=== PATIENT | female | born 1950 | race Caucasian/White ===

== ENCOUNTER → 2018-05-14 | Outpatient (CLI) | payer MEDICARE ==
--- NOTE | 2018-06-07 08:28 | Diagnostic Imaging Report ---
#[id number] - MGSCRBIL #BILATERAL DIGITAL SCREENING MAMMOGRAM WITH CAD: 05/14/2018 CLINICAL: Routine screening. No prior exams were available for comparison (patient does not remember where or when old studies were performed). Current study contains 4 films. There are scattered fibroglandular elements in both breasts. Current study was also evaluated with a Computer Aided Detection (CAD) system. There are multiple benign appearing nodules in both breasts; left more than right. There is a mole marker on the left side with scattered calcifications in both breasts. No significant masses, calcifications, or other findings are seen in either breast. IMPRESSION: PROBABLY BENIGN A follow-up mammogram in 6 months is recommended to demonstrate stability associated with the multiple small nodules in both breasts since there is nothing to compare with. The patient has been or will be notified of the results. Erick Rehman Jr., D.O. cw/:06/04/2018 13:15:45 Electrical Controls Assembler: Shanika BRISENO)([place]), [facility] letter sent: Followup Recommended Mammogram BI-RADS: 3 Probably benign
== END ==
LOC: MAMMO 10:41
PROVIDERS: ATTEND Family Medicine
DX: Z12.31 Encounter for screening mammogram for malignant neoplasm of breast (principal)
CPT/HCPCS: 77067